=== PATIENT | male | born 1950 | race Caucasian/White ===

== ENCOUNTER 2017-12-25 05:53 | Day surgery (SDC) | payer OTHER ==
[2017-12-25] MEDS ORDERED: ACETAMINOPHEN 325 MG TAB PO (06:00)
[2017-12-25] MEDS ORDERED: ACETYLCHOLINE OPHTH SOLN 1% 2ML (MIOCHOL-E) As Ordered (06:29)
[2017-12-25] MEDS: LIDOCAINE 3.5 % 1ML OPHTH TOPICAL GEL OU (06:44)
[2017-12-25] MEDS: PHENYLEPHRINE 2.5% OPHTH SOL 2ML OS (06:45)
[2017-12-25] MEDS: OFLOXACIN 0.3 % (OCUFLOX) OPTH SOL 5ML OS (06:45)
[2017-12-25] MEDS: TROPICAMIDE 1% OPHTH SOLN 2ML OS (06:45)
[2017-12-25] MEDS: CYCLOPENTOLATE 2% OPHTH SOLN 2ML BTL OS (06:45)
[2017-12-25] MEDS ORDERED: PHENYLEPHRINE HCL 10 % OPHTH. SOL 5ML OS (07:00)
[2017-12-25] MEDS ORDERED: fentaNYL 100 MCG/2 ML INJECTION (J3010) As Ordered (07:34)
[2017-12-25] MEDS ORDERED: MIDAZOLAM INJ 2 MG/2 ML VIAL (J2250) As Ordered (07:34)
[2017-12-25] MEDS: POVIDONE-IODINE 5% OPHTH PREP SOL 30ML As Ordered (07:35)
[2017-12-25] MEDS: TRIAMCINOLONE PRES FR 40 MG/ML 1ML(TRIESENCE)(OR EYE ONLY)(J3300 PER 1MG) As Ordered (07:41)
[2017-12-25] MEDS: HEALON DUET (HEALON 10MG/ML 0.55ML & HEALON ENDOCOAT 30MG/ML 0.85ML) As Ordered (07:41)
[2017-12-25] MEDS: CEFUROXIME 1MG/0.1ML INTRACAMERAL INJ As Ordered (07:41)
[2017-12-25] MEDS: MOXIFLOXACIN IN BSS 0.25MG/0.25ML INTRACAMERAL INJ (OR EYE ONLY)(J2280) As Ordered (07:41)
[2017-12-25] MEDS: LIDOCAINE 2% W/EPIN INJ 20ML **PRES FREE As Ordered (07:41)
[2017-12-25] MEDS: LIDOCAINE 1% SDV 5 ML VIAL As Ordered (07:42)
[2017-12-25] MEDS: BSS with VANC/TOB/EPI for EYE CASES IR (07:42)
[2017-12-25] MEDS ORDERED: TRIMETHOBENZAMIDE 300 MG CAP PO (08:00)
[2017-12-25] MEDS: AcetaZOLAMIDE 500 MG ER CAP PO (08:00)
== END 2017-12-25 08:17 | disposition home or self-care (01) ==
LOC: M SDC 05:53
DX: H25.9 Unspecified age-related cataract (principal); E78.5 Hyperlipidemia, unspecified; Z79.899 Other long term (current) drug therapy
CPT/HCPCS: 66984

== ENCOUNTER 2018-01-01 06:27 | Day surgery (SDC) | payer OTHER ==
[~2018-01-01 06:27] MED LIST: ACETAMINOPHEN 325 MG TAB PO
[2018-01-01] MEDS: PHENYLEPHRINE 2.5% OPHTH SOL 2ML OD (06:52)
[2018-01-01] MEDS: CYCLOPENTOLATE 2% OPHTH SOLN 2ML BTL OD (06:53)
[2018-01-01] MEDS: OFLOXACIN 0.3 % (OCUFLOX) OPTH SOL 5ML OD (06:53)
[2018-01-01] MEDS: TROPICAMIDE 1% OPHTH SOLN 2ML OD (06:53)
[2018-01-01] MEDS: LIDOCAINE 3.5 % 1ML OPHTH TOPICAL GEL OU (06:53)
[2018-01-01] MEDS ORDERED: PHENYLEPHRINE HCL 10 % OPHTH. SOL 5ML OD (07:00)
[2018-01-01] MEDS ORDERED: BSS with VANC/TOB/EPI for EYE CASES IR (07:00)
[2018-01-01] MEDS ORDERED: fentaNYL 100 MCG/2 ML INJECTION (J3010) As Ordered (07:06)
[2018-01-01] MEDS ORDERED: MIDAZOLAM INJ 2 MG/2 ML VIAL (J2250) As Ordered (07:06)
[2018-01-01] MEDS: HEALON DUET PRO(HEALON 10MG/ML 0.55ML & HEALON ENDOCOAT 30MG/ML 0.85ML) As Ordered (08:08)
[2018-01-01] MEDS: LIDOCAINE 1% SDV 5 ML VIAL As Ordered (08:08)
[2018-01-01] MEDS: MOXIFLOXACIN IN BSS 0.25MG/0.25ML INTRACAMERAL INJ (OR EYE ONLY)(J2280) As Ordered (08:08)
[2018-01-01] MEDS: POVIDONE-IODINE 5% OPHTH PREP SOL 30ML As Ordered (08:08)
[2018-01-01] MEDS: TRIAMCINOLONE PRES FR 40 MG/ML 1ML(TRIESENCE)(OR EYE ONLY)(J3300 PER 1MG) As Ordered (08:08)
[2018-01-01] MEDS ORDERED: AcetaZOLAMIDE 500 MG ER CAP As Ordered (08:19)
[2018-01-01] MEDS: AcetaZOLAMIDE 500 MG ER CAP PO (08:29)
[2018-01-01] MEDS ORDERED: TRIMETHOBENZAMIDE 300 MG CAP PO (08:30)
== END 2018-01-01 08:58 | disposition home or self-care (01) ==
LOC: M SDC 06:27
DX: H25.9 Unspecified age-related cataract (principal); E78.5 Hyperlipidemia, unspecified; Z79.899 Other long term (current) drug therapy
CPT/HCPCS: 66984